=== PATIENT | male | born 1960 | race African-American/Black ===

== ENCOUNTER 2020-04-04 01:25 | Emergency (ER) | payer MEDICAID, OTHER ==
[~2020-04-04] VITALS: Ht 175.3 cm; Wt 180.0 kg
[2020-04-04 05:50] VITALS: BP 158/101
== END 2020-04-04 05:53 | disposition home or self-care (01) ==
LOC: ER 01:25
DX: R53.1 Weakness (principal); F10.129 Alcohol abuse with intoxication, unspecified; I10 Essential (primary) hypertension; E11.9 Type 2 diabetes mellitus without complications; Z88.8 Allergy status to other drugs, medicaments and biological substances; Z88.0 Allergy status to penicillin; Y90.9 Presence of alcohol in blood, level not specified
CPT/HCPCS: 99283

== ENCOUNTER 2020-04-04 05:55 | Emergency (ER) | payer OTHER ==
[~2020-04-04] VITALS: Ht 182.9 cm; Wt 112.0 kg
[2020-04-04] MEDS ORDERED: HYDROCODONE/ACETAMINOPHEN 5/325MG TABLET PO ONE (08:00)
[2020-04-04 10:45] VITALS: BP 161/86
== END 2020-04-04 10:46 | disposition home or self-care (01) ==
LOC: ER 05:55
DX: M79.661 Pain in right lower leg (principal); E11.9 Type 2 diabetes mellitus without complications; I10 Essential (primary) hypertension; Z88.0 Allergy status to penicillin; Z88.8 Allergy status to other drugs, medicaments and biological substances
CPT/HCPCS: 73590; 99283